=== PATIENT | female | born 1995 | race Caucasian/White ===

== ENCOUNTER 2017-04-12 22:09 | Emergency (ER) | payer OTHER ==
[~2017-04-12] VITALS: Ht 162.6 cm; Wt 65.8 kg
[2017-04-12 22:20] VITALS: Ht 162.6 cm; Wt 65.8 kg
[2017-04-13 00:24] VITALS: BP 125/68
== END 2017-04-13 00:25 | disposition home or self-care (01) ==
LOC: ED 22:09
DX: M79.645 Pain in left finger(s) (principal)